=== PATIENT | male | born 1990 | race Caucasian/White ===

== ENCOUNTER 2020-12-29 12:13 | Emergency (ER) | payer BC, MEDICAID, SELFPAY ==
--- NOTE | ~2020-12-29 | XR_ITS ---
XR chest 1V portable DATE: 12/29/2020 14:17 INDICATION: Cough, shortness of breath TECHNIQUE: Portable AP chest on 12/29/2020 at 1417 hours COMPARISON: None FINDINGS: Normal heart size. No hilar or mediastinal enlargement. No pulmonary infiltrate or consolid ation, pleural effusion or pulmonary vascular congestion or pneumothorax. IMPRESSION: No active cardiopulmonary disease Reviewed, dictated and finalized at location A.
[2020-12-29 12:20] VITALS: BP 99/38; PULSE 44; RESP 24; TEMP 36.3; O2SAT 98
--- NOTE | 2020-12-29 13:18 | ECG_ITS ---
Measurements Intervals [place] Rate: 62 P: 41 MN: 173 QRS: -28 QRSD: 123 T: 7 QT: 462 QTc: 470 Interpretive Statements SINUS RHYTHM WITH SINUS ARRHYTHMIA INTRAVENTRICULAR CONDUCTION DELAY EARLY PRECORDIAL R/S TRANSITION MINIMAL Q WAVES- HIGH LATERAL LEADS POSSIBLE LEFT VENTRICULAR HYPERTROPHY BORDERLINE ST-T WAVE ABNORMALITY- ANT/INF LEADS BORDERLINE ECG Electronically Signed On 12-29-2020 13:59:09 CDT by Donnell Yousif D.O.
--- NOTE | 2020-12-29 13:19 | ED.URI ---
HPI - URI/Sore Throat General Chief Complaint: Upper Respiratory Infection Stated Complaint: sob, wheezing Time Seen by Provider: 12/29/20 13:08 Source: patient and RN notes reviewed Mode of arrival: ambulatory Limitations: no limitations History of Present Illness HPI Narrative: This is a 30 year old male with history of asthma who presents for evaluation of shortness of breath. PAtient states he developed difficulty breathing while he was at work this morning. He reports cough, chest tightness and difficulty breathing. He used his albuterol inhaler twice without relief so he came to ER. He reports having similar episode 3 weeks ago , and he was diagnosed with a sinus infection. He has completed antibiotics. He reports sore throat and runny nose. He denies fever, chills, nausea or vomiting. He has intermittent diarrhea due to his celiac disease. Related Data Allergies Allergy/AdvReac Type Severity Reaction Status Date / Time iohexol Allergy Rash Verified 12/29/20 15:47 [From contrast - CT, X-RAY] Review of Systems Review of Systems: All systems reviewed & are unremarkable except as noted in HPI and below PMFSH Past Medical History Medical History (Updated 12/29/20 @ 16:01 by Nataliia Acuña MD) Asthma Celiac disease Surgical History Surgical History (Updated 12/29/20 @ 13:20 by Nataliia Acuña MD) H/O colonoscopy Social History Social History (Updated 12/29/20 @ 13:20 by Nataliia Acuña MD) Smoking status: Never smoker Alcohol intake: current Substance use: never Exam Const: General: no acute distress and alert Orientation/consciousness: patient oriented x3 HENMT: Head: normocephalic and atraumatic Face and sinus: face symmetric Mouth: Yes moist mucous membranes Throat: posterior oropharynx abnormal erythema; no exudates Eyes: EOM: EOMs intact bilaterally Chest: Chest palpation & inspection: normal inspection of the chest Resp: Effort & Inspection: normal respiratory effort, not labored, no retractions, not tachypneic and no use of accessory muscles Auscultation: wheezes inspiratory wheezes Cardio: Rate: regular rate Rhythm: regular rhythm Heart sounds: no murmurs GI: GI Palp: Yes Soft to palpation, No Tenderness to palpation present (GI) and No Guarding due to palpation present (GI) Auscultation: normal bowel sounds Skin: General skin exam: normal color Rashes: no rashes Neuro: General: patient oriented x3 and moves all extremities Extrem: General: no pedal edema Psych: Mental Status: mental status grossly normal Affect: normal affect Course Reevaluation(s) Reevaluation #1: Patient reports he feels better. He has no complaints. He is able to ambulate with out distress. Oxygen saturation remains 95% on room. He will be tested for covid. Date: 12/29/20 Time: 15:57 Vital Signs Vital signs: Vital Signs Temperature 97.4 F L 12/29/20 12:20 Pulse Rate 44 L 12/29/20 12:20 Respiratory Rate 24 H 12/29/20 12:20 Blood Pressure 99/38 L 12/29/20 12:20 Pulse Oximetry 98 12/29/20 12:20 Temperature 97.4 F L 12/29/20 12:20 Pulse Rate 52 L 12/29/20 16:09 Respiratory Rate 18 12/29/20 16:09 Blood Pressure 120/75 12/29/20 16:09 Pulse Oximetry 96 12/29/20 16:09 MDM - URI/Sore Throat Lab Data Attestation: I reviewed the patient's lab results. Result diagrams: 12/29/20 14:06 12/29/20 14:06 Labs: Lab Results 12/29/20 12/29/20 12/29/20 Range/Units 13:37 14:06 14:06 WBC 6.7 (4.5-10.0) K/mm3 RBC 5.14 (4.6-6.20) M/mm3 Hgb 15.0 (14.0-18.0) g/dL Hct 44.0 (42.0-52.0) % MCV 85.6 (80-100) fl MCH 29.2 (26-34) pg MCHC 34.1 (32-36) g/dl RDW 13.2 (11.5-14.5) % Plt Count 189 (150-375) k/mm3 MPV 11.5 H (7.4-10.4) fl Immature Gran % (Auto) 0.1 (0-0.5) % Neut % (Auto) 55.6 (45.5-73.1) % Lymph % (Auto) 32.3 (18.3-44.2) % [place] % (Auto) 6.6 (2.
[2020-12-29] MEDS: ALBUTEROL SULFATE (*SP) AEROSOL 1 PUFF 8 PUFF INHALATION (13:39)
[2020-12-29] MEDS: predniSONE 20 MG TABLET 60 MG PO (13:41)
[2020-12-29 13:45] VITALS: PULSE 54; RESP 22
[2020-12-29 13:52] LABS: Alveolar/Arterial O2 Gradient 23.9 mmHg; Base Excess ABG -1.6 mEq/l (+/-2.0); Carboxyhemoglobin 0.4 % THb (0-2.0); Fractional Inspired Oxygen 21 %; HCO3 ABG 22.5 mEq/l (22.0-26.0); Methemoglobin ABG 0.3 %THb (0-1.5); Oxygen Content ABG 20.7 %vol (16.0-22.0); Oxygen Saturation ABG 96.3 % (95.0-100.0); Oxyhemoglobin 95.6 % THb (90.0-100.0); PCO2 ABG 36.3 mmHg (35.0-45.0); PO2 ABG 82.4 mmHg (80.0-100.0); PO2 FiO2 Ratio Arterial Blood 3.92 %; Reduced Hemoglobin 3.7 %THb (0-5.0); Total Hemoglobin 15.4 g/dL (12.0-18.0)
[2020-12-29 13:54] LABS: Device ROOM AIR; Modified Allen's Test Pass; Site Drawn RIGHT RADIAL
[2020-12-29 14:14] LABS: Basophils Percent Auto 0.6 % (0.2-1.2); Eosinophils Absolute Auto 0.3 K/mm3 (0-0.3); Eosinophils Percent Auto 4.8 % (0-4.4); Immature Granulocyte Absolute 0.01 K/mm3 (0.00-0.031); Immature Granulocyte Percent A 0.1 % (0-0.5); Lymphocytes Absolute Auto 2.16 K/mm3 (0.9-3.2); Lymphocytes Percent Auto 32.3 % (18.3-44.2); Mean Corpuscular HGB Conc 34.1 g/dl (32-36); Mean Corpuscular Hemoglobin 29.2 pg (26-34); Mean Corpuscular Volume 85.6 fl (80-100); Mean Platelet Volume 11.5 fl (7.4-10.4); Monocytes Absolute Auto 0.4 K/mm3 (0.1-0.6); Monocytes Percent Auto 6.6 % (2.6-8.5); Neutrophils Absolute Auto 3.7 K/mm3 (1.3-6.7); Neutrophils Percent Auto 55.6 % (45.5-73.1); Platelet Count Result 189 k/mm3 (150-375); Red Blood Count 5.14 M/mm3 (4.6-6.20); Red Cell Distribution Width 13.2 % (11.5-14.5); White Blood Count 6.7 K/mm3 (4.5-10.0)
[2020-12-29 14:27] LABS: Lactic Acid Reflex 1.5 mmol/L (0.7-2.1)
[2020-12-29 14:28] LABS: Alanine Aminotransferase 18 U/L (4-50); Albumin Level 4.4 g/dL (3.5-5.1); Alkaline Phosphatase 62 U/L (38-126); Anion Gap 8 mmol/L (8-16); Aspartate Amino Transferase 25 U/L (17-59); Bilirubin,Total 0.4 mg/dL (0.2-1.3); Blood Urea Nitrogen 7 mg/dL (9-20); CRP 0.5 mg/dL (<1.0); Calcium 9.3 mg/dL (8.4-10.2); Carbon Dioxide 27 mmol/L (22-30); Chloride 107 mmol/L (98-107); Estimated CRCL calculation 153 ml/min; Estimated Glomerular Filt Rate > 60; Glucose 95 mg/dL (75-110); Potassium 3.2 mmol/L (3.4-5.0); Sodium 142 mmol/L (137-145)
[2020-12-29 14:33] LABS: INR 1.1; Partial Thromboplastin Time 25.9 SECONDS (22.3-36.8); Prothrombin Time 14.9 Seconds (11.1-14.7)
[2020-12-29 14:37] LABS: Troponin I < 0.012 ng/mL (0.000-0.034)
[2020-12-29 14:46] LABS: D Dimer 0.27 ug/mL (<0.48)
[2020-12-29] MEDS: POTASSIUM CHLORIDE 20 MEQ TABLET 40 MEQ PO (15:48)
[2020-12-29 16:09] VITALS: BP 120/75; PULSE 52; RESP 18; O2SAT 96
[2020-12-30 19:37] LABS: SARS-CoV-2 RNA PCR Negative
== END 2020-12-29 16:15 | disposition home or self-care (01) ==
PROVIDERS: Emergency Provider General Practice; PCP Family Medicine
DX: J45.21 Mild intermittent asthma with (acute) exacerbation (principal); J06.9 Acute upper respiratory infection, unspecified; Z20.822 Contact with and (suspected) exposure to COVID-19; K90.0 Celiac disease; I45.9 Conduction disorder, unspecified; R94.31 Abnormal electrocardiogram [ECG] [EKG]
CPT/HCPCS: 36415; 36600; 71045; 80053; 82375; 82805; 83050; 83605; 83735; 84484; 85025; 85380; 85610; 85730; 86140; 87081; 87804; 87880; 93005; 94640; 99284; A9270; C9803; J7512; U0003; U0005